=== PATIENT | male | born 1960 | race Caucasian/White ===

== ENCOUNTER 2019-12-04 10:07 | Outpatient (CLI) | payer OTHER, SELFPAY ==
--- NOTE | 2019-12-04 10:13 | ECG_ITS ---
Measurements Intervals [place] Rate: 64 P: -24 ME: 140 QRS: -37 QRSD: 137 T: -87 QT: 442 QTc: 457 Interpretive Statements SINUS RHYTHM LEFT AXIS DEVIATION INTRAVENTRICULAR CONDUCTION DELAY LEFT VENTRICULAR HYPERTROPHY AND ST-T CHANGE ANTEROSEPTAL INFARCT- AGE INDETERMINATE ST-T WAVE ABNORMALITY IN INFERIOR LEADS- CONSIDER ISCHEMIA ABNORMAL ECG Electronically Signed On 12-04-2019 10:55:59 CDT by Jan Newberry D.O.
[2019-12-04 10:23] LABS: Hematocrit 44.4 % (40.0-54.0); Hemoglobin 15.2 g/dL (14.0-18.0); Mean Corpuscular HGB Conc 34.2 g/dL (32.0-36.0); Mean Corpuscular Volume 90.6 fL (78.0-102.0); Mean Platelet Volume 8.2 fl (8.7-11.0); Platelet Count Result 270 K/mm3 (150-420); Red Cell Distribution Width 13.4 % (11.6-14.4); White Blood Count 6.3 K/mm3 (4.8-10.8)
[2019-12-04 10:46] LABS: BNP 226 pg/mL (0-100)
[2019-12-04 11:14] LABS: Alanine Aminotransferase 22 U/L (16-63); Albumin Level 3.7 g/dL (3.4-5.0); Alkaline Phosphatase 74 U/L (46-116); Anion Gap 12.4 mmol/L (7-16); Aspartate Amino Transferase 22 U/L (15-37); Bilirubin,Total 0.2 mg/dL (0.00-1.00); Blood Urea Nitrogen 13 mg/dL (7-18); Calcium 8.7 mg/dL (8.5-10.1); Carbon Dioxide 30 mmol/L (21-32); Chloride 102 mmol/L (98-108); Cholesterol 220 mg/dL (0-200); Estimated Glomerular Filt Rate 23; Glucose 86 mg/dL (70-99); HDL Direct 54 mg/dL (40-60); LDL Cholesterol Calculated 126 mg/dL (<130); Osmolality Calculated 289 mOsm/kg (285-295); Potassium 4.4 mmol/L (3.5-5.1); Sodium 140 mmol/L (136-145); Total Protein 7.1 g/dL (6.4-8.2); Triglycerides 201 mg/dL (0-150)
[2019-12-04 11:18] LABS: Troponin I 0.02 ng/mL (0.00-0.056)
== END 2019-12-04 10:08 | disposition home or self-care (01) ==
PROVIDERS: PCP Family Medicine; Visit Provider Family Medicine
DX: R07.9 Chest pain, unspecified (principal); I10 Essential (primary) hypertension
CPT/HCPCS: 36415; 80053; 80061; 83880; 84484; 85027; 93005

== ENCOUNTER 2019-12-04 18:09 | Inpatient (IN) | payer OTHER, SELFPAY ==
[2019-12-04] VITALS (11 sets, daily range): BP systolic 60–161; BP diastolic 40–79; PULSE 53–87; RESP 12–20; TEMP 36.2–36.3; O2SAT 96–100; BMI 21.5
--- NOTE | 2019-12-04 | ECHO_ITS ---
Patient Info Name: Dawson Rowland Age: 59 years : 1960 Gender: Male Ht: 67 in Wt: 162 lbs BSA: 1.87 m2 HR: 75 bpm Heart Rhythm: Sinus Rhythm Technical Quality: Good Exam Date: 12/04/2019 4:34 PM Exam Location: [facility] Patient Status: Inpatient Admit Date: 12/04/2019 Staff Ordering Physician: Edison Godoy MD Label Rewinder: Silvino Chester RDCS Attending Provider: Edison Godoy MD Referring Physician: Jayne ROSE; Exam Type: CA echo doppler color flow Study Info Indications R07.9 - Chest pain, unspecified R94.31 - Abnormal electrocardiogram ECG EKG Complete two-dimensional, color flow and Doppler transthoracic echocardiogram is performed. Strain analysis performed. History/Risk Factors Chest pain; HTN, SOB, abnormal EKG. Summary 1. Left ventricular chamber dimension is mildly enlarged. 2. Left ventricular systolic function is severely reduced, estimated at 20-25%. 3. The apex is dyskinetic. The anterior wall, apical lateral, mid anterolateral vargas are akinetic. 4. The left ventricular diastolic function is grade II diastolic dysfunction. 5. There is mild aortic valve stenosis with a peak velocity of 207 cm/s, mean gradient of 8 mmHg, and aortic valve area of 1.7 cm2. 6. There is mild to moderate mitral valve regurgitation. 7. Mild pulmonary hypertension, estimated pulmonary arterial systolic pressure is 44 mmHg. 8. There is mild tricuspid valve regurgitation. Left Ventricle Left ventricular chamber dimension is mildly enlarged. Left ventricular systolic function is severely reduced, estimated at 20-25%. There is mildly increased left ventricular wall thickness. The left ventricular diastolic function is grade II diastolic dysfunction. Global longitudinal strain is severely elevated at -7 %. The apex is dyskinetic. The anterior wall, apical lateral, mid anterolateral vargas are akinetic. Right Ventricle Right ventricular chamber dimension is normal. Right ventricular systolic function is normal. Left Atria Left atrial chamber dimension is mildly enlarged. Right Atria Right atrial chamber dimension is normal. Aortic Valve The aortic valve is not well visualized. There is mild aortic valve stenosis with a peak velocity of 207 cm/s, mean gradient of 8 mmHg, and aortic valve area of 1.7 cm2. There is trace aortic valve regurgitation. There is mild aortic valve calcification. Pulmonic Valve The pulmonic valve is not well visualized. There is trace pulmonic regurgitation. Mitral Valve The mitral valve has thickened leaflets. There is mild to moderate mitral valve regurgitation. The mitral valve annulus is mildly calcified. Tricuspid Valve The tricuspid valve leaflets are normal. There is mild tricuspid valve regurgitation. Mild pulmonary hypertension, estimated pulmonary arterial systolic pressure is 44 mmHg. Pericardium/Pleural The pericardium appears normal. There is no pericardial effusion. Inferior Vena Cava Normal inferior vena cava with <50% collapse upon inspiration consistent with elevated right atrial pressure, 10 mmHg. Aorta The aortic root size at the sinus of Valsalva is normal. Left Ventricular Outflow Tract Name Value Normal LVOT 2D
--- NOTE | ~2019-12-04 | CT_ITS ---
EXAMINATION: CT abdomen pelvis wo con DATE: 12/05/2019 10:37 INDICATION: Post procedural back pain following cardiac catheterization. TECHNIQUE: Computed tomography (CT) of the abdomen and pelvis was performed without intravenous contr ast. Automated exposure control and iterative reconstruction technique were employed. The dose-length product was 487.68 mGy-cm. COMPARISON: None FINDINGS: Mild dependent atelectasis in the bilateral lower lobes. Partially visualized intrafissural lymph nod e along the right minor fissure. No pneumonia, pulmonary edema or pleural effusion. Heart size is nor mal. Atherosclerotic coronary artery calcification. There is a left ventricular assist device which a ppears to access the arteries at the level of the right common femoral artery which extends cephalad throughout the aorta with distal tip positioned within the left ventricle. The portion of the device extending through the aortic arch is excluded from the [id number]. There is calcified atherosclero sis of the aorta and many of the other arteries. No aortic aneurysm, retroperitoneal hematoma or susp icious stranding surrounding the aorta to suggest aortic injury. Nasogastric tube tip at the fundus o f the stomach. Vicariously excreted contrast likely from cardiac catheterization is seen layering in the dependent a spect of the normal-appearing gallbladder. Liver, pancreas and bilateral adrenal glands are normal. S plenic calcific a consistent consistent with old granulomatous disease. Excreted contrast likely from prior cardiac catheterization is seen within the bilateral renal collecting systems, ureters and in the bladder with no hydronephrosis. Kidneys are otherwise unremarkable. Pineda catheter within the rk dder which demonstrates a mildly trabeculated mucosal surface. No abnormal bowel wall thickening or o bstruction. The appendix is not visualized. No pericecal inflammatory change to suggest acute appendi citis. No free intraperitoneal gas or fluid. No pathologically enlarged abdominal or pelvic lymphaden opathy. [place] mild thoracolumbar spondylosis. Ankylosis across the anterior cephalad margins of the bi lateral sacral iliac joints. IMPRESSION: 1. Left ventricular assist device in expected position with no evident aneurysm, periaortic stranding or retroperitoneal hematoma to suggest iatrogenic injury. 2. No acute intra-abdominal/pelvic process. Reviewed, dictated and finalized at location A. IMPRESSION: 1. Left ventricular assist device in expected position with no evident aneurysm , periaortic stranding or retroperitoneal hematoma to suggest iatrogenic injury . 2. No acute intra-abdominal/pelvic process.
--- NOTE | ~2019-12-04 | XR_ITS ---
XR chest ET placement 12/05/2019 09:55 Indication: Respiratory distress. Procedure: AP portable chest Comparison: 12/04/2019 Findings: Heart size normal. Endotracheal tube tip 6 cm above the bhumi. NG tube in the stomach. The re is a catheter overlying the heart, possibly in the left ventricle. No focal air space disease, pul monary edema, pleural effusion or suspected pneumothorax. Impression: 1: No acute cardiopulmonary disease. Reviewed, dictated and finalized at location A. Impression: 1: No acute cardiopulmonary disease.
--- NOTE | ~2019-12-04 | XR_ITS ---
EXAMINATION: XR abdomen NG/feed tube insert DATE: 12/05/2019 09:55 INDICATION: Orogastric tube insertion TECHNIQUE: A supine view of the abdomen and lower chest was obtained for evaluation of feeding tube placement. COMPARISON: None. FINDINGS: Orogastric tube tip in proximal side port in the body of the stomach. Gas and stool scattered through out the colon. No dilated gas-filled small bowel to suggest obstruction. Lung bases are clear. Heart size is normal. Left ventricular assist device extending from the right iliac arteries through the ao rta with distal tip in the left ventricle. IMPRESSION: 1. Gastric tube in the stomach. Reviewed, dictated and finalized at location A.
--- NOTE | ~2019-12-04 | XR_ITS ---
EXAMINATION: XR chest 2V EXAM DATE: 12/04/2019 18:04 INDICATION: Mid chest pain. Recent STEMI. TECHNIQUE: Frontal and lateral projections of the chest obtained and reviewed. Comparison is made to prior examination from 12/01/2015. FINDINGS: There is no focal air space disease. There are no pleural effusions. The cardiothymic jodi houette is normal. There is no pneumothorax. There are no osseous or soft tissue abnormalities in t his skeletally immature patient. Lungs have normal volume. Mild thoracic spondylosis. IMPRESSION: No acute cardiopulmonary findings. Reviewed, dictated and finalized at location A.
--- NOTE | 2019-12-04 15:59 | PM.IMHP ---
H&P: HPI History of Present Illness Chief complaint: PROGRESSIVE ANGINA Narrative: Dawson Rowland is a 59 year old male admitted due to chest pain. He was in his usual state of health until about 6 months ago. At that time he began to experience intermittent substernal chest pressure. Initially was with hard work only a such as splitting wood. However then it progressed to the point very walking 600 ft on flat ground with precipitated. Currently he is able to walk up only about 5-6 stairs prior to had stopping because of chest pain. Chest pain is moderately severe and radiates to the neck and both shoulders and biceps. It is associated with shortness of breath and palpitations. He has to rest 5-10 minutes for the pain to go away. However he feels tired for a few hours after each episode. Over the last 3 months or so he has noted difficulty breathing while lying flat. He sleeps on his side. Sometimes he wakes up in the middle of his night with chest pressure and shortness of breath and has to sit up to make it go away. He denied edema. He denied syncope or presyncope. No recent change in appetite or weight. No recent GI or habit change. No abnormal bleeding. He did have a stroke with right-sided weakness in 2015. However he regained almost all of his strength and had no physical limitations until the onset of chest pain 6 months ago. Risk factors for coronary artery disease include cigarette smoking, hypertension, hyperlipidemia, and cerebrovascular disease. Review of Systems Review of Systems: All systems reviewed & are unremarkable except as noted in HPI and below PMFSH Past Medical History Medical History (Updated 12/04/19 @ 17:41 by Edison Godoy MD) Bilateral carotid bruits Cerebrovascular disease Chest pain Chronic systolic (congestive) heart failure Cigarette nicotine dependence History of stroke Hyperlipidemia Hypertension Mitral insufficiency Surgical History Surgical History (Updated 12/04/19 @ 17:35 by Edison Godoy MD) History of carpal tunnel repair Right Side, with subsequent reconstruction Family History Family History Mother Heart disease Alzheimers disease Father Leukemia Social History Social History (Updated 12/04/19 @ 17:37 by Edison Godoy MD) Social History: . Resides with his . Works construction intermittently. Smoked 1.5 packs per day from age 24 until age 54. Then cut down to about 3-5 cigarettes per day. Drinks a beer about 3 times per week. Never used recreational drugs. Does construction work intermittently. Smoking packs per day: 0.25 Smoking cigarettes per day: 5.0 Years smoked: 35 Smoking pack-years: 8.75 Smoking status: Current every day smoker Tobacco type: cigarettes Second hand tobacco smoke exposure: No Alcohol intake: current Drinks per week: 3 Substance use: never Living arrangements: with family Additional living arrangements comments: . Occupation/Education: occupation 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 Gender identity (if verbalized by the patient): Male Spiritual care concerns: Yes Agree to blood products: Yes Meds Home Medications and Allergies Home Medications Medication Instructions Recorded Confirmed Type No Home Medications 12/04/19 12/04/19 History Allergies Allergy/AdvReac Type Severity Reaction Status Date / Time No Known Allergies Allergy Verified 12/04/19 09:43 Exam Narrative: Exam Narrative: HEENT: EOMI, PERRL, sclerae nonicteric, pharyngeal mucosa pink and intact NECK: No JVD, adenopathy, or thyromegaly. Bilateral systolic carotid bruits, left greater than right. CHEST: Clear to auscultation. Normal effort. HEART: NL S1/S2, regular, 3/6 apical systolic murmur radiating to axilla. PMI displaced laterally. ABDOMEN: BS+, so
--- NOTE | 2019-12-04 16:54 | ADMGEN ---
This patient, Dawson Rowland, was admitted to IMU Room 201-01 at 1530 on 12/04/2019. Patient/family oriented to hospital policies and general routines including ID bracelet, bed and alarms, visiting hours, pain management, procedures, bathroom and other care routines, personal items, smoking policy, room service/diet, and visiting hours. Valuables list has been completed. Information on how to activate the Rapid Response Team has been discussed. Patient/Family are encouraged to report perceived risks to care and to ask questions if they do not understand what they are told or what they should do.
[2019-12-04 17:51] LABS: Cholesterol 221 mg/dL (0-200); HDL Direct 62 mg/dL; Triglycerides 59 mg/dL (<150)
[2019-12-04 17:52] LABS: Magnesium 2.3 mg/dL (1.6-2.3)
[2019-12-04 17:59] LABS: CRP < 0.5 mg/dL (<1.0)
[2019-12-04 18:02] LABS: LDL Cholesterol Direct 150 mg/dL
[2019-12-04 18:03] LABS: Complement C3 105 mg/dL (88-165)
[2019-12-04 18:03] LABS: Troponin I 0.026 ng/mL (0.000-0.034)
[2019-12-04] MEDS: ASPIRIN 81 MG CHEWABLE TABLET 324 MG PO (18:16)
[2019-12-04] MEDS: NICOTINE (*PBKC) 7 MG PATCH 1 PATCH TRANSDERM (18:19)
[2019-12-04 18:59] LABS: Hepatitis B Surface Antigen Negative (Negative)
[2019-12-04 19:17] LABS: Hepatitis C Virus Antibody Negative (Negative)
[2019-12-04] MEDS: SODIUM CHLORIDE 0.9% IV 250 ML 999 ML IV CONT (19:30)
--- NOTE | 2019-12-04 20:45 | ECG_ITS ---
Measurements Intervals [place] Rate: 66 P: -60 CT: 132 QRS: -48 QRSD: 126 T: 269 QT: 418 QTc: 440 Interpretive Statements ECTOPIC ATRIAL RHYTHM LEFT AXIS DEVIATION INTRAVENTRICULAR CONDUCTION DELAY LEFT VENTRICULAR HYPERTROPHY AND ST-T CHANGE CANNOT RULE OUT SEPTAL INFARCT, AGE INDETERMINATE ST ELEVATION IN ANTEROSEPTAL LEADS- PROBABLY DUE TO LEFT VENTRICULAR HYPERTROPHY AND CONSIDER ACUTE INJURY ST-T WAVE ABNORMALITY IN INF/LAT LEADS- CONSIDER ISCHEMIA ABNORMAL ECG Electronically Signed On 12-05-2019 7:12:14 CDT by Jan Newberry D.O.
[2019-12-04] MEDS: NITROGLYCERIN SL 0.4 MG TABLET SUBLINGUAL ×2 (20:57→21:02)
[2019-12-04 21:18] LABS: Basophils Absolute Auto 0.1 K/mm3 (0.0-0.1); Basophils Percent Auto 0.9 % (0.2-1.2); Eosinophils Absolute Auto 0.1 K/mm3 (0-0.3); Hemoglobin 15.7 g/dL (14.0-18.0); Immature Granulocyte Absolute 0.01 K/mm3 (0.00-0.031); Immature Granulocyte Percent A 0.1 % (0-0.5); Lymphocytes Absolute Auto 1.91 K/mm3 (0.9-3.2); Lymphocytes Percent Auto 27.8 % (18.3-44.2); Mean Corpuscular HGB Conc 34.9 g/dl (32-36); Mean Corpuscular Hemoglobin 30.7 pg (26-34); Mean Corpuscular Volume 88.1 fl (80-100); Mean Platelet Volume 8.5 fl (7.4-10.4); Monocytes Absolute Auto 0.7 K/mm3 (0.1-0.6); Monocytes Percent Auto 9.5 % (2.6-8.5); Neutrophils Absolute Auto 4.1 K/mm3 (1.3-6.7); Neutrophils Percent Auto 59.7 % (45.5-73.1); Platelet Count Result 302 k/mm3 (150-375); Red Blood Count 5.11 M/mm3 (4.6-6.20); Red Cell Distribution Width 13.2 % (11.5-14.5); White Blood Count 6.9 K/mm3 (4.5-10.0)
[2019-12-04 21:25] LABS: INR 0.9; Prothrombin Time 11.8 Seconds (11.1-14.7)
[2019-12-04 21:26] LABS: Partial Thromboplastin Time 28.6 SECONDS (22.3-36.8)
[2019-12-04] MEDS: HEPARIN SODIUM 5,000 UNITS/ML VIAL 3500 UNITS IV PUSH (21:36)
[2019-12-04] MEDS: HEPARIN SOD/D5W 100 UNITS/ML 25,000 UNITS/250 ML BAG 7 UNITS IV CONT (21:36)
[2019-12-04 21:39] LABS: Troponin I 0.029 ng/mL (0.000-0.034)
--- NOTE | 2019-12-04 21:43 | PC.NURSE ---
This patient, Dawson Rowland, was transferred to ICU-10 on 12/04/19 at 2130 R/O NC. Personal belongings sent with patient. Belongings list checked and signed with receiving [ ]. Report given to GERBER BLACKWELL [ ]. Appropriate documentation sent with patient.
--- NOTE | 2019-12-04 21:53 | PM.CCN ---
Critical Care Event Note Summary Code activated: No Narrative: Date and time: 12/04/2019 around 21:05 Nursing staff called hospitalist office and reported left shoulder pain and was requesting pain medications. The patient had been directly admitted from outpatient clinic in [place] due to anginal symptoms and CHF symptoms. The patient's initial troponin from the outside clinic was 0.02 around 10:00 a.m. he had a 2nd troponin at 5:30 p.m. have his 0.026. A stat troponin was ordered when the nurse had reported the patient having left shoulder pain and came back at 0.029. The patient had an EKG done at the outpatient office a stat EKG was obtained which demonstrated: Left axis deviation, interventricular conduction delay, left ventricular hypertrophy and ST and T-wave changes, anterior septal infarct age indeterminate, ST and T-wave abnormalities inferior leads consider ischemia per per official read. At the time of my review I was concerned that some of the changes consistent with ST elevation. A stat repeat EKG was obtained which demonstrated stable prior changes but also demonstrated at T-wave inversions in V5 and V6. The patient received stat nitro sublingual at 8:55 p.m. and at 9:02 p.m. because he was reporting not only left shoulder pain but squeezing pain in his neck radiating up to his bilateral jaws in across his shoulders bilaterally. He had also reported pain in the posterior left shoulder. His pain decreased from a 10 down to a 4/10 in intensity after the 2nd nitro. Heparin bolus and drip was ordered per protocol. His blood pressure was elevated to 161/76 at 7:36 p.m. his blood pressure prior to 1st nitro administration was 125/76. His systolic blood pressure was still in the 120s systolic prior to the 2nd nitro administration. I was at the patient's bedside to evaluate the patient at 9:10 p.m.. Nursing staff had contacted the human geography faculty member and I when out of the room to discuss the patient's case with Dr. Soria. I had forwarded the EKGs to the human geography faculty member and she was reviewing the EKGs. She recommended the patient be transferred to the ICU for low-dose nitroglycerin drip. While I was out of the room the patient became acutely diaphoretic with increased shortness of breath. This occurred approximately 35 minutes after the 2nd nitro administration. His blood pressures were 60/40. I gave the patient 250 mL bolus of isotonic fluids. I updated the human geography faculty member and she since the patient's EKGs to the interventionalist on-call. Dr. Chow called me at 9:37 p.m. and after discussion of the patient's case and condition the asked for the brush clearing laborer to be activated. The patient was only mcfp through his fluid bolus at that time his blood pressure had improved to 110s/ 60. Criminal Intelligence Analyst requested that he the dopamine or Levophed and made available for any further hypotension. S patient did not have a central line dopamine was ordered. However the patient never required dopamine administration as his blood pressures were 120/76 when he was taken out to the brush clearing laborer at 10:39 p.m.. When the patient was transferred to the ICU, I called and discussed the patient's case with the oracle database consultant. He agreed with current treatment plan. 85 minutes spent in critical care activities. This case had a high probability of a clinically significant, sudden, or life threatening deterioration of this patient's condition which required my full and direct attention, intervention and personal management. Critical care time: 75 - 104 mins
--- NOTE | 2019-12-04 22:30 | PM.CNCAR ---
Assessment and Plan Assessment and plan (1) Unstable angina: Code(s): I20.0 - Unstable angina Status: Acute Assessment and Plan: status post cardiac catheterization that shows totally occluded left main coronary artery and ostium. patient has very large and dominant right coronary artery with extensive [id number] collaterals. Impella was inserted for hemodynamics support and for relief of angina symptoms. will need to refer this patient to [facility] for evaluation for either CABG or high-risk intervention. (2) Chronic systolic (congestive) heart failure: Code(s): I50.22 - Chronic systolic (congestive) heart failure Status: Acute Assessment and Plan: ejection fraction 25%. Again this is a new diagnosis for the patient. ischemic cardiomyopathy. currently with Impella (3) History of stroke: Code(s): Z86.73 - Personal history of transient ischemic attack (TIA), and cerebral infarction without residual deficits Status: Acute Assessment and Plan: patient does have bilateral carotid bruits. we need to clarify the history of the stroke (4) Cigarette nicotine dependence: Qualifiers: Substance use status: uncomplicated Qualified Code(s): F17.210 - Nicotine dependence, cigarettes, uncomplicated Code(s): F17.210 - Nicotine dependence, cigarettes, uncomplicated Status: Chronic Assessment and Plan: chronic nicotine dependence History of Present Illness History of Present Illness Consult date/time: 12/04/19 22:30 reason for consult:. consult for chest pain, shortness of breath low blood pressure EKG changes Physician asking for consultation: this is 59-year-old patient with past medical history of chronic tobacco use, alcohol drinking, CVA with right-sided weakness, hypertension who apparently was evaluated are [facility] this morning for chest pain. Apparently central chest pain, on exertion for the last 6 months associated shortness of breath. chest pain radiating to both arms and neck and has been progressive over the last 6 months and now he gets chest pain on minimal exertion. However apparently this evening he was not having chest pain at rest that his blood pressure dropped to the 60 systolic and patient had to be transferred to the ICU. EKG reviewed myself shows ST elevations V1 to V3, aVL, LVH, ST depression inferior leads in lead V6. echocardiogram done today shows ejection fraction 25% wall motion anterior, anterolateral mild aortic stenosis [id number] mitral regurgitation, RVSP 44. chest x-ray reviewed myself looks unremarkable serum creatinine 2.8, BNP 240 Reason For Visit: ANGINA Review of Systems Constitutional: Constitutional: Denies chills, Denies fever(s) and Denies poor appetite Eyes: Eyes: Denies eye discharge, Denies loss of vision, Denies eye pain and Denies photophobia ENT: Denies dizziness, Denies epistaxis, Denies nasal congestion and Denies sore throat Cardiovascular: Cardiovascular: Reports chest pain, Denies syncope, Denies pedal edema, Denies leg edema, Reports lightheadedness, Denies palpitations, Reports dyspnea, Reports dyspnea on exertion and Reports orthopnea Respiratory: Respiratory: Reports cough, Reports dyspnea, Reports dyspnea on exertion and Denies wheezing Gastrointestinal: Gastrointestinal: Denies abdominal pain, Denies diarrhea, Denies nausea and Denies vomiting Genitourinary: Genitourinary: Denies hematuria, Denies genital lesions and Denies dysuria Musculoskeletal: Musculoskeletal: Denies arthralgias, Denies joint swelling and Denies numbness Integumentary/Breasts: Skin/Breast: Denies pruritus and Denies rash Neurologic: Denies dizziness, Denies syncope, Denies loss of vision and Denies numbness Psychiatric: Psychiatric: Denies anxiety and Denies depression Endocrine: Endocrine: Denies cold intolerance, Denies heat intolerance and Denies palpitations Jovany
[2019-12-05] VITALS (18 sets, daily range): BP systolic 86–148; BP diastolic 66–109; PULSE 50–106; RESP 12–18; TEMP 36.1–36.9; O2SAT 95–100
--- NOTE | 2019-12-05 00:09 | WPDMODSED ---
Moderate Sedation Note-Pt Data Patient Data Allergies Allergy/AdvReac Type Severity Reaction Status Date / Time No Known Allergies Allergy Verified 12/04/19 09:43 Home Medications Medication Instructions Recorded Confirmed Type No Home Medications 12/04/19 12/04/19 History Current Medications: Active Medications Aspirin (Aspirin Ec) 81 mg PO QAM [facility] Atorvastatin Calcium (Lipitor) 40 mg PO DAILY [facility] Carvedilol (Coreg) 1.56 mg PO Q12HR [facility] Last Admin: 12/04/19 22:07 Dose: Not Given Documented by: Heparin Sodium (Porcine) (Heparin Sodium) 4,000 units IV PUSH PRN PRN PRN Reason: aPTT less than 55 seconds Heparin Sodium (Porcine) (Heparin Sodium) 2,500 units IV PUSH PRN PRN PRN Reason: aPTT 55 - 70 seconds Heparin Sodium/Dextrose (Heparin Sodium/D5w 100 Units/Ml) 25,000 units in 250 mls @ 7 mls/hr IV CONT .Q24H [facility]; Protocol Last Admin: 12/04/19 21:36 Dose: 700 units/hr, 7 mls/hr Documented by: Dopamine HCl/Dextrose (Dopamine 400 Mg/D5w 250 Ml) 400 mg in 250 mls @ 4.68 mls/hr IV CONT .Q24H [facility]; Protocol Nicotine (Nicoderm Cq 7 Mg) 1 patch [facility] [place] Last Admin: 12/04/19 18:19 Dose: 1 patch Documented by: Nitroglycerin (Nitrostat Subl 0.4 Mg (1/150)) 0.4 mg SUBLINGUAL Q5MIN PRN PRN Reason: Chest Pain Last Admin: 12/04/19 21:02 Dose: 0.4 mg Documented by: Sedation/Anesthesia: No previous sedation/anesthesia problems (including family history). [facility] Past Medical History Medical History Bilateral carotid bruits Cerebrovascular disease Chest pain Chronic systolic (congestive) heart failure Cigarette nicotine dependence History of stroke Hyperlipidemia Hypertension Mitral insufficiency Surgical History Surgical History History of carpal tunnel repair Right Side, with subsequent reconstruction Family History Family History Mother Heart disease Alzheimers disease Father Leukemia Social History Social History Social History: . Resides with his . Works construction intermittently. Smoked 1.5 packs per day from age 24 until age 54. Then cut down to about 3-5 cigarettes per day. Drinks a beer about 3 times per week. Never used recreational drugs. Does construction work intermittently. Smoking packs per day: 0.25 Smoking cigarettes per day: 5.0 Years smoked: 35 Smoking pack-years: 8.75 Smoking status: Current every day smoker Tobacco type: cigarettes Second hand tobacco smoke exposure: No Alcohol intake: current Drinks per week: 3 Substance use: never Living arrangements: with family Additional living arrangements comments: . Occupation/Education: occupation 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 Gender identity (if verbalized by the patient): Male Spiritual care concerns: Yes Agree to blood products: Yes Mod Sed Physical Exam Physical Exam Pre Procedural Exam: Normal: Appearance, Eyes, Ears, Nose, Neck, Throat, Airway, Lungs, Heart Size, Heart Rate, Heart Rhythm, Neuro Exam, Abdomen, Liver, Kidneys, Spleen, Breasts, Genitalia, Extremities and Skin Hours since solid foods: 8 Hours since liquid intake: 8 Internal Medicine - PN: Obj Da Vital Signs Vital Signs: Vital Signs - 24 hr 12/04/19 15:30 12/04/19 16:00 12/04/19 16:15 Temperature 36.3 C L 36.3 C L Pulse Rate 66 80 64 Respiratory Rate 16 20 Blood Pressure 126/79 122/60 Pulse Oximetry 100 98 12/04/19 18:00 12/04/19 19:36 12/04/19 20:00 Temperature 36.2 C L Pulse Rate 64 61 87 Respiratory Rate 18 Blood Pressure 161/76 H Pulse Oximetry 96 12/04/19 20:50 12/04/19 21:15 12/04/19 21:25 Temperature Pulse Rate 66 63 Respiratory Rate 18 Blo
--- NOTE | 2019-12-05 00:10 | P.PCNCC_ITS ---
Cardiac Cath Procedure Note Date of procedure:: 12/05/19 Performing physician:: Anabelle Bray MD Indication:: unstable angina date of service: 12/04/2019 Brief clinical history:: 59-year-old patient with history of stroke, hypertension, chronic tobacco use comes to the hospital with progressive chest pain for the last 6 months worse for the last couple days with angina at rest. EKG shows ST elevation in leads V1 to V3, LVH, ST depression inferior leads. Was brought into the veterinary laboratory technician because of ongoing chest pain Procedure Procedure performed:: 1-Moderate sedation that started at 10:56 p.m. and ended at 12:00 a.m.using 1 mg of Versed and 50mg fentanyl. The registered nurse Kim Frausto. 2-Selective left and right coronary angiogram. 3-Left heart catheterization with measurement of LVEDP and measurement of gradient across aortic valve. 4- peripheral arterial angiogram of bilateral iliacs, bilateral common femoral arteries. 5- Insertion of left ventricular assist device, percutaneous including radiological supervision and interpretation, arterial access only CPT code 83841. 6- CPT code 22544- critical care, evaluation and management of a critically injured patient, 1st 30-74 minutes. Sedation/Medication given:: Moderate sedation. Access site:: Right common femoral artery. Estimated blood loss:: 10cc Procedure note:: After informed consent patient was brought in to veterinary laboratory technician with the was draped and prepped in usual manner. Moderate sedation was given and the right groin was infiltrated using 1% lidocaine. Five Scottish sheath was obtained using micropuncture needle and the modified Seldinger technique. Selective left coronary angiogram was done using JL4 catheter with the tip of the catheter placed in the left main coronary artery. Selective right coronary angiogram was done using JR4 catheter with the tip of the catheter placed to the right coronary artery. After that 5 Scottish pigtail catheter was advanced across the aortic valve into the left ventricle with measurement of LVEDP and measurement of gradient across aortic valve. after that we used the pigtail catheter for peripheral arterial angiogram. subsequently the right femoral artery sheath was changed and the Impella sheath was inserted after serial dilatation. Impella catheter was advanced to the left ventricle over a wire. the Impella was set at P8, with 3 liters/minute. Findings:: 1- left coronary artery is totally occluded at the ostium with Heavy calcification. 2- left anterior descending artery seems to be filling with collaterals from the right coronary artery. 3- leftcircumflex artery is filling with collaterals from the right coronary artery. 4- right coronary artery is very large artery and dominant. has proximal to mid 60-70%. distal RCA focal stenosis about 70%. 5- LVEDP was 10 mm Hg and no gradient across aortic valve. 6- opening arterial pressure was 105/60and closing pressure was 117/80 7- peripheral arterial angiogram shows patent common iliacs, external iliacs and bilateral femoral arteries. the right common femoral artery below the entrance site of the catheter as mild disease. the left common femoral artery bifurcation is very high. Conclusion:: 1- totally occluded left main coronary artery at ostium. 2- extensive [id number] collaterals. 3- high-grade stenosis proximal RCA, distal RCA. Assessment and Plan Additional Plan at this time we will refer this patient to [facility] for evaluation for bypass surgery or intervention coronary artery. - patient does have at least moderate mitral regurgitation as well.
[2019-12-05 01:57] LABS: Add Urine Microscopic? YES; Appearance Urine Clear (Clear); Bilirubin Urine Negative (Negative); Blood Urine 1+ (Negative); Color Urine Straw (Yellow); Glucose Urine UA Negative (Negative); Ketones Urine Negative (Negative); Leukocyte Esterase Ur Negative LEU/UL (Negative); Nitrate Urine Negative (Negative); Protein Urine Negative (Negative); RBC Urine 0-2 /hpf (0-2); Specific Grav Ur 1.018 (1.001-1.035); Urobilinogen Urine Negative mg/dL (<2.0); WBC Urine 0-3 /hpf
[2019-12-05] MEDS: SODIUM CHLORIDE 0.9% IV 500 ML IV CONT (02:08)
[2019-12-05 03:35] LABS: Basophils Percent Auto 0.6 % (0.2-1.2); Eosinophils Absolute Auto 0.1 K/mm3 (0-0.3); Eosinophils Percent Auto 1.9 % (0-4.4); Hematocrit 44.2 % (42.0-52.0); Hemoglobin 15.1 g/dL (14.0-18.0); Immature Granulocyte Absolute 0.02 K/mm3 (0.00-0.031); Immature Granulocyte Percent A 0.3 % (0-0.5); Lymphocytes Absolute Auto 1.34 K/mm3 (0.9-3.2); Lymphocytes Percent Auto 21.5 % (18.3-44.2); Mean Corpuscular HGB Conc 34.2 g/dl (32-36); Mean Corpuscular Hemoglobin 30.6 pg (26-34); Mean Corpuscular Volume 89.5 fl (80-100); Mean Platelet Volume 8.7 fl (7.4-10.4); Monocytes Absolute Auto 0.5 K/mm3 (0.1-0.6); Monocytes Percent Auto 8.7 % (2.6-8.5); Neutrophils Absolute Auto 4.2 K/mm3 (1.3-6.7); Platelet Count Result 282 k/mm3 (150-375); Red Blood Count 4.94 M/mm3 (4.6-6.20); Red Cell Distribution Width 13.6 % (11.5-14.5); White Blood Count 6.2 K/mm3 (4.5-10.0)
[2019-12-05 04:21] LABS: Partial Thromboplastin Time 79.5 SECONDS (22.3-36.8)
[2019-12-05] MEDS: SODIUM CHLORIDE 0.9% IV 500 ML 999 ML IV CONT (04:23)
--- NOTE | 2019-12-05 04:23 | PM.CCN ---
Critical Care Event Note Summary Code activated: No Narrative: Nursing staff called me at 3:49 a.m. The patient had suddenly developed severe tearing low back pain. He screamed out and had marked pallor. He was diaphoretic. His heart rate had dropped a 30 and his blood pressure had dropped reportedly a 30 as well. The patient became less responsive. Nursing staff had called Cardiology and received or for 500 mL bolus. The patient remained hypotensive with systolic blood pressures a 76. He remained bradycardic with heart rate between 40 and 50. Patient reported that the pain had improved but he still have marked pallor. GENERAL: The thin body habitus, acutely ill-appearing HEENT: Mucous membranes are tacky, head is normocephalic atraumatic, pupils are equal and react CARDIOVASCULAR: Bradycardic, normal S1-S2 RESPIRATORY: No increased work of breathing, equal chest expansion ABDOMEN: Nondistended, no pain INTEGUMENT: Generalized pallor, diaphoretic NEUROLOGIC: Alert, barely audible speech, needing frequent reminders of events of tonight, moves extremities equally PSYCHIATRIC: Appropriate mood affect EXTREMITIES: No clubbing, cyanosis or edema : Pineda catheter in place with good urine output Assessment: 1. 2 vessel coronary artery disease-Impella in place. Management per cardiology. Anticipate the patient will be transferred to tertiary care in a.m.. Repeat EKG has been ordered. 2. Bradycardia and hypotension-possible vagal event related to the patient's pain verses due to cardiac ischemia. Patient received 500 mL bolus normal saline with improvement in his blood pressure the mid 70s systolic. An additional 250 mL bolus is being administered at this time. This case had a high probability of a clinically significant, sudden, or life threatening deterioration of this patient's condition which required my full and direct attention, intervention and personal management. Critical care time: less than 30 mins
[2019-12-05 04:24] LABS: Blood Urea Nitrogen 15 mg/dL (9-20); Calcium 8.7 mg/dL (8.4-10.2); Carbon Dioxide 24 mmol/L (22-30); Chloride 106 mmol/L (98-107); Estimated CRCL calculation 57 ml/min; Estimated Glomerular Filt Rate > 60; Glucose 115 mg/dL (75-110); Potassium 4.7 mmol/L (3.4-5.0); Sodium 135 mmol/L (137-145)
[2019-12-05] MEDS: SODIUM CHLORIDE 0.9% IV 250 ML 999 ML IV CONT (04:25)
[2019-12-05 04:43] LABS: Troponin I 0.217 ng/mL (0.000-0.034)
--- NOTE | 2019-12-05 04:56 | ECG_ITS ---
Measurements Intervals [place] Rate: 52 P: 66 MO: 165 QRS: -52 QRSD: 128 T: 259 QT: 507 QTc: 472 Interpretive Statements SINUS BRADYCARDIA LEFT ANTERIOR FASCICULAR BLOCK LEFT VENTRICULAR HYPERTROPHY AND ST-T CHANGE CANNOT RULE OUT SEPTAL INFARCT, AGE INDETERMINATE ST-T WAVE ABNORMALITY IN INFERIOR LEADS- CONSIDER ISCHEMIA ABNORMAL ECG Electronically Signed On 12-05-2019 10:27:38 CDT by Jan Newberry D.O.
[2019-12-05 07:47] LABS: Partial Thromboplastin Time 27.1 SECONDS (22.3-36.8)
[2019-12-05] MEDS: MORPHINE SULFATE 2 MG/ML INJ IV PUSH (08:38)
--- NOTE | 2019-12-05 09:35 | WPDCNINT ---
Assessment and Plan Assessment and plan (1) Unstable angina: Code(s): I20.0 - Unstable angina Status: Acute Assessment and Plan: patient presented with chest pain for 6 months, worsening with exertion, patient was seen at the outside clinic for worsening chest pain with minimal exertion. EKG changes were noted in patient was sent [facility]. - status post cardiac catheterization that shows totally occluded left main coronary artery at the ostium, patient has a very large and dominant right coronary artery with extensive [id number] collaterals. Patient also has high-grade stenosis to the proximal and distal RCA. - Impella device in place, on heparin infusion - on aspirin, carvedilol, atorvastatin (2) Chronic systolic (congestive) heart failure: Code(s): I50.22 - Chronic systolic (congestive) heart failure Status: Acute Assessment and Plan: echocardiogram showed an EF of 20-25%, apex is dyskinetic, the anterior wall the apical lateral and mid anterolateral vargas are akinetic. May 2 diastolic dysfunction, mild aortic valve stenosis, mild to moderate mitral valve regurg, mild pulmonary hypertension with RVSP of 44 mmHg. (3) Renal failure: Qualifiers: Renal failure chronicity: unspecified chronicity Qualified Code(s): N19 - Unspecified kidney failure Code(s): N19 - Unspecified kidney failure Status: Acute Assessment and Plan: Creatinine is back to normal, patient has had adequate urine output. (4) Cigarette nicotine dependence: Qualifiers: Substance use status: uncomplicated Qualified Code(s): F17.210 - Nicotine dependence, cigarettes, uncomplicated Code(s): F17.210 - Nicotine dependence, cigarettes, uncomplicated Status: Chronic Assessment and Plan: Patient has a nicotine patch (5) History of stroke: Code(s): Z86.73 - Personal history of transient ischemic attack (TIA), and cerebral infarction without residual deficits Status: Acute Assessment and Plan: history of stroke in 2015, no residual weakness per patient (6) Hypertension: Qualifiers: Hypertension type: unspecified Qualified Code(s): I10 - Essential (primary) hypertension Code(s): I10 - Essential (primary) hypertension Status: Chronic Assessment and Plan: history of essential hypertension currently on Coreg (7) Acute respiratory failure: Code(s): J96.00 - Acute respiratory failure, unspecified whether with hypoxia or hypercapnia Status: Acute Assessment and Plan: patient was intubated as he was being anxious due to pain, was tachypneic, unable to stay still. I decided to intubate the patient for his safety. - On CMV mode of ventilation, peep of 5 in 60% FiO2 - chest x-ray showed, ETT in appropriate position Additional Plan discussed with cardiology, they have discussed with the family in details as patient is being transferred to [facility] code status: Full code Critical care time spent: 51 minutes Due to a high probability of clinically significant, life threatening deterioration, the patient required my highest level of preparedness to intervene emergently and I personally spent this critical care time directly and personally managing the patient. This critical care time included obtaining a history; examining the patient; pulse oximetry; ordering and review of studies; arranging urgent treatment with development of a management plan; evaluation of patient's response to treatment; frequent reassessment; and discussions with other providers. It was exclusive of separately billable procedures and treating other patients and teaching time. Please see Assessment and Plan section and the rest of the note for further information on patient assessment and treatment [facility] Historian Consult Note Consult date: 12/05/19 Time Seen: 06:58 Reason for consult: chest pa
[2019-12-05 09:57] LABS: Hematocrit 46.2 % (42.0-52.0); Hemoglobin 15.5 g/dL (14.0-18.0); Mean Corpuscular HGB Conc 33.5 g/dl (32-36); Mean Corpuscular Hemoglobin 30.5 pg (26-34); Mean Corpuscular Volume 90.9 fl (80-100); Mean Platelet Volume 8.6 fl (7.4-10.4); Platelet Count Result 267 k/mm3 (150-375); Red Blood Count 5.08 M/mm3 (4.6-6.20); Red Cell Distribution Width 13.5 % (11.5-14.5); White Blood Count 11.3 K/mm3 (4.5-10.0)
[2019-12-05] MEDS: SODIUM CHLORIDE 0.9% IV 500 ML 999 ML (10:00)
[2019-12-05 10:08] LABS: Blood Urea Nitrogen 15 mg/dL (9-20); Calcium 8.6 mg/dL (8.4-10.2); Carbon Dioxide 23 mmol/L (22-30); Chloride 107 mmol/L (98-107); Estimated CRCL calculation 68 ml/min; Estimated Glomerular Filt Rate > 60; Glucose 120 mg/dL (75-110); Potassium 4.2 mmol/L (3.4-5.0); Prothrombin Time 12.5 Seconds (11.1-14.7); Sodium 135 mmol/L (137-145)
[2019-12-05 10:09] LABS: Partial Thromboplastin Time 29.4 SECONDS (22.3-36.8)
[2019-12-05] MEDS: MIDAZOLAM HCL 2 MG/2 ML VIAL (10:30)
--- NOTE | 2019-12-05 11:07 | WPDPROCEDUR ---
Procedures Intubation Intubation Date: 12/05/19 Intubation Time: 09:40 A pre-procedural Time-Out was completed immediately before starting the procedure and confirmed: Patient Identification, Site, Procedure, Patient Position and the Availability of Requisite Equipment: Yes Sedative: etomidate Paralytic: succinylcholine Laryngoscope: fiber optic video scope ET tube size: 8 Tube secured depth (cm): 24 Tube secured location: lips Tube placement confirmation: visualized tube passing through cords, equal breath sounds bilaterally, no breath sounds over epigastrium and confirmation by capnometry Patient tolerated procedure: no complications Intubation complications: none Additional comments: After obtaining consent from the patient and explaining the rationale for intubation. it was decided to go ahead and intubate the patient. The patient was lying in the supine position. Preoxygenation via BVM was provided for a minimum of 3 minutes. The patient had continuous cardiac as well as pulse oximetry monitoring during the procedure. Rapid sequence induction was provided by administration of Etomidate and Succinylcholine. A Glidescope blade 4 was used to directly visualize the vocal cords. A 8 mm endotracheal tube was visualized advancing between the cords to a level of 24 cm at the lip. The stylette was then removed. Tube placement was also noted by fogging in the tube, equal and bilateral breath sounds, no sounds over the epigastrium, and end-tidal colorimetric monitoring. The cuff was then inflated with 10 ml of air and the tube secured using a commercially available device. A good pulse oximetry wave form was seen on the monitor throughout the procedure. The patient was then connected to the ventilator at a tidal volume of 450 ml; rate of 16; FiO2 of 60%; and PEEP of 5. A portable chest x-ray has been ordered for placement. Continued sedation will be provided by Propofol continuous infusion titrated to a RASS of -2. The patient tolerated the procedure well.
[2019-12-05] MEDS: MIDAZOLAM HCL 2 MG/2 ML VIAL 4 MG (11:30)
[2019-12-05] MEDS: LORAZEPAM INJ 2 MG/ML VIAL 1 MG IV PUSH (14:07)
--- NOTE | 2019-12-05 14:13 | PCDIET ---
Patient transported from [place] to [facility] with [facility] - leaving ICU 10 at 11 am , to room 8307. Report provided to ROSALVA Dobson. This nurse traveled with patient. Pt intubated, and Impella pump in-place. Pt maintained vital signs within normal limits during transport. Pt given Versed 2mg, IVP at 1130 for agitation. Pt. tolerated transport without additional incident. Pt care transferred to ROSALVA Ross in ICU at [place]. Impella pump was transitioned without incident. [place] Impella pump returned to [employer] upon return.
[2019-12-05 17:15] LABS: SARS-CoV-2 RNA PCR Negative
--- NOTE | 2019-12-05 17:53 | P.TS_ITS ---
Transfer Discharge Sum: Prov Provider Date of admission: 12/05/19 09:10 Primary care physician: Rasta Wilson DO Admitting clinician: Edison Godoy MD Consults: 12/04/19 Consult to Physician Routine Comment: Consulting Provider: Nolvia Chavira manager call center/ group to consult: Dr. Chavira Reason for consultation: Unstable angina, hypotension Has provider been notified: Yes 12/04/19 17:29 Consult to Physician Routine Comment: RN spoke with Gina Farr Consulting Provider: Loco Calzada manager call center/ group to consult: LEONIDAS Reason for consultation: angina Has provider been notified: Yes DS: Diagnosis Admitting Diagnosis Admitting Diagnosis: Other forms of angina pectoris Discharge Diagnosis (1) Chest pain: Qualifiers: Chest pain type: chest pain due to myocardial ischemia Ischemic chest pain type: stable angina pectoris Qualified Code(s): I20.8 - Other forms of angina pectoris Code(s): R07.9 - Chest pain, unspecified Status: Acute Assessment and Plan: * Clinically has both exertional angina that is progressively worsened as well as angina decubitus * Based on this and his electrocardiogram multivessel disease is suspected and confirmed at catheterization with 100% ostial left main and subtotal RCA with collaterals from right coronary to LAD * Aspirin, carvedilol, atorvastatin, prn nitrates as blood pressure allows while here (2) Hypertension: Qualifiers: Hypertension type: unspecified Qualified Code(s): I10 - Essential (primary) hypertension Code(s): I10 - Essential (primary) hypertension Status: Chronic Assessment and Plan: * Home medications unknown at this time * Low-dose carvedilol given relatively low blood pressure and heart rate * Monitor and titrate as tolerated with possible addition of ACEI or ARB later (3) Renal failure: Qualifiers: Renal failure chronicity: unspecified chronicity Qualified Code(s): N19 - Unspecified kidney failure Code(s): N19 - Unspecified kidney failure Status: Acute Assessment and Plan: * Etiology unclear with no recent medication changes or use of [id number] nonsteroidal anti-inflammatory drugs * No symptoms to suggest obstructive uropathy * Renal ultrasound revealed no obstruction * CRP, Anca, MINERVA, complement C3 and C4, kappa and lambda light chains, urine eosinophiles * Repeat creatinine day of transfer down to 1.1 from 2.8 (4) Chronic systolic (congestive) heart failure: Code(s): I50.22 - Chronic systolic (congestive) heart failure Status: Acute Assessment and Plan: * Suggested by symptoms and exam and confirmed by imaging * Echocardiogram EF 20-25% with same findings at cardiac catheterization * Low-dose carvedilol (5) History of stroke: Code(s): Z86.73 - Personal history of transient ischemic attack (TIA), and cerebral infarction without residual deficits Status: Acute Assessment and Plan: * No residual deficit (6) Cigarette nicotine dependence: Qualifiers: Substance use status: uncomplicated Qualified Code(s): F17.210 - Nicotine dependence, cigarettes, uncomplicated Code(s): F17.210 - Nicotine dependence, cigarettes, uncomplicated Status: Chronic Assessment and Plan: * 3-5 minutes was spent in smoking cessation discussion (7) Cerebrovascular disease: Code(s): I67.9 - Cerebrovascular disease, unsp
--- NOTE | 2019-12-05 17:53 | PM.TDS ---
Transfer Discharge Sum: Prov Provider Date of admission: 12/05/19 09:10 Primary care physician: Rasta Wilson DO Admitting clinician: Edison Godoy MD Consults: 12/04/19 Consult to Physician Routine Comment: Consulting Provider: Nolvia Chavira call center rn/ group to consult: Dr. Chavira Reason for consultation: Unstable angina, hypotension Has provider been notified: Yes 12/04/19 17:29 Consult to Physician Routine Comment: RN spoke with Gina Farr Consulting Provider: Loco Calzada call center rn/ group to consult: LEONIDAS Reason for consultation: angina Has provider been notified: Yes DS: Diagnosis Admitting Diagnosis Admitting Diagnosis: Other forms of angina pectoris Discharge Diagnosis (1) Chest pain: Qualifiers: Chest pain type: chest pain due to myocardial ischemia Ischemic chest pain type: stable angina pectoris Qualified Code(s): I20.8 - Other forms of angina pectoris Code(s): R07.9 - Chest pain, unspecified Status: Acute Assessment and Plan: Clinically has both exertional angina that is progressively worsened as well as angina decubitus Based on this and his electrocardiogram multivessel disease is suspected and confirmed at catheterization with 100% ostial left main and subtotal RCA with collaterals from right coronary to LAD Aspirin, carvedilol, atorvastatin, prn nitrates as blood pressure allows while here (2) Hypertension: Qualifiers: Hypertension type: unspecified Qualified Code(s): I10 - Essential (primary) hypertension Code(s): I10 - Essential (primary) hypertension Status: Chronic Assessment and Plan: Home medications unknown at this time Low-dose carvedilol given relatively low blood pressure and heart rate Monitor and titrate as tolerated with possible addition of ACEI or ARB later (3) Renal failure: Qualifiers: Renal failure chronicity: unspecified chronicity Qualified Code(s): N19 - Unspecified kidney failure Code(s): N19 - Unspecified kidney failure Status: Acute Assessment and Plan: Etiology unclear with no recent medication changes or use of wczl-[id number] nonsteroidal anti-inflammatory drugs No symptoms to suggest obstructive uropathy Renal ultrasound revealed no obstruction CRP, Anca, MINERVA, complement C3 and C4, kappa and lambda light chains, urine eosinophiles Repeat creatinine day of transfer down to 1.1 from 2.8 (4) Chronic systolic (congestive) heart failure: Code(s): I50.22 - Chronic systolic (congestive) heart failure Status: Acute Assessment and Plan: Suggested by symptoms and exam and confirmed by imaging Echocardiogram EF 20-25% with same findings at cardiac catheterization Low-dose carvedilol (5) History of stroke: Code(s): Z86.73 - Personal history of transient ischemic attack (TIA), and cerebral infarction without residual deficits Status: Acute Assessment and Plan: No residual deficit (6) Cigarette nicotine dependence: Qualifiers: Substance use status: uncomplicated Qualified Code(s): F17.210 - Nicotine dependence, cigarettes, uncomplicated Code(s): F17.210 - Nicotine dependence, cigarettes, uncomplicated Status: Chronic Assessment and Plan: 3-5 minutes was spent in smoking cessation discussion (7) Cerebrovascular disease: Code(s): I67.9 - Cerebrovascular disease, unspecified Status: Acute Assessment and Plan: As above history of CVA with no residual continue statin and aspirin beta-grupo (8) Hyperlipidemia: Code(s): E78.5 - Hyperlipidemia, unspecified Status: Acute Assessment and Plan: LDL 150 Atorvastatin 40mg daily Transfer Discharge Sum: Med Medications Active and Home Medications: Home Medications No Home Medications 12/04/19 [History Confirmed 12/04/19] Transfer Discharge Sum: Hosp Hosp
[2019-12-07 10:02] LABS: ANA Cascade Screen Positive (Negative)
[2019-12-07 11:42] LABS: Chromatin (Nucleosomal) Ab <1.0; Chromatin Antibody Charge YES; DNA (ds) Antibody Charge YES; RNP Antibody 6.3; RNP Antibody Charge YES; Sm Antibody <1.0; Sm Antibody Charge YES; Sm/RNP Antibody <1.0; Sm/RNP Antibody Charge YES
[2019-12-07 12:09] LABS: ANCA Screen Negative (Negative)
[2019-12-09 03:58] LABS: Kappa\\Lambda Light Chains 1.73 (0.26-1.65); Lambda Light Chain 17.8 mg/L (5.7-26.3)
[2019-12-12 10:02] LABS: Activated Clotting Time 142 SEC (74-137)
[2019-12-12 10:04] LABS: Activated Clotting Time 279 SEC (74-137)
== END 2019-12-05 11:05 | disposition short-term general hospital (02) | DRG 161 ==
LOC: ANHIMU 18:19 → ANHICU 22:29 → ANHIMU 12-05 09:35
PROVIDERS: Internal Medicine; Internal Medicine Cardiovascular Disease; Nurse Practitioner Adult Health; Physician Assistant; Admitting Provider Internal Medicine; PCP Family Medicine; Visit Provider Internal Medicine
PROC: 4A023N7 Measurement of Cardiac Sampling and Pressure, Left Heart, Percutaneous Approach (ICD-10-PCS; CPT 93452; principal; 2019-12-04 10:20)
PROC: 02HA3RZ Insertion of Short-term External Heart Assist System into Heart, Percutaneous Approach (ICD-10-PCS; CPT 33979; 2019-12-04 10:20)
DX: I25.110 Atherosclerotic heart disease of native coronary artery with unstable angina pectoris (principal); I11.0 Hypertensive heart disease with heart failure; I50.23 Acute on chronic systolic (congestive) heart failure; I25.5 Ischemic cardiomyopathy; I69.351 Hemiplegia and hemiparesis following cerebral infarction affecting right dominant side; N17.9 Acute kidney failure, unspecified; E78.5 Hyperlipidemia, unspecified; F17.210 Nicotine dependence, cigarettes, uncomplicated; I34.0 Nonrheumatic mitral (valve) insufficiency
CPT/HCPCS: 31500; 33990; 36415; 71046; 74176; 80048; 80061; 81001; 83735; 83883; 84100; 84443; 84484; 85025; 85027; 85610; 85730; 85999; 86021; 86038; 86140; 86160; 86225; 86235; 86803; 87340; 87635; 93005; 93306; 93458; 94002; 96361; 96365; 96374; A9270; C1887; C1894; G0378; G0379; J0131; J0461; J1200; J1265; J1644; J2060; J2250; J2270; J2370; J2704; J3010; J7030; J7040; J7050; J7060; L1830; U0003

== ENCOUNTER 2020-05-30 12:18 | Outpatient (CLI) | payer OTHER, SELFPAY ==
--- NOTE | 2020-05-30 12:23 | ECHO_ITS ---
Patient Info Name: Dawson Rowland Age: 59 years : 1960 Gender: Male Ht: 66 in Wt: 145 lbs BSA: 1.76 m2 HR: 55 bpm BP: 112 / 70 mmHg Heart Rhythm: Sinus Rhythm Technical Quality: Good Exam Date: 05/30/2020 12:49 PM Exam Location: [facility] Patient Status: Outpatient Admit Date: 05/30/2020 Staff Ordering Physician: Rasta Wilson DO Meter Inspector: Malu Wang RDCS Attending Provider: Rasta Wilson DO Referring Physician: Katie ROSARIO; Exam Type: CA echo doppler color flow Study Info Indications I50.22 - Chronic systolic (congestive) heart failure Complete two-dimensional, color flow and Doppler transthoracic echocardiogram is performed. Strain analysis performed. History/Risk Factors Hypertension: Yes Dyslipidemia: Yes Peripheral Arterial Disease (PAD): No Myocardial Infarction (ND): Yes Obesity: No Renal Disease: No Coronary Artery Disease (CAD) Yes Congestive Heart Failure (CHF): Hx CHF Diabetes Mellitus: No Tobacco Use: Former Cerebrovascular Disease: CVA DVT Treatment: Apixaban Deep Vein Thrombosis (DVT): None Dialysis: None Frailty Scale (CSHA): 3: Managing Well Summary 1. Complete two-dimensional, color flow and Doppler transthoracic echocardiogram is performed. 2. Left ventricular chamber dimension is severely enlarged. 3. Left ventricular systolic function is severely reduced, estimated at 25-30%. 4. The left ventricular diastolic function is grade I diastolic dysfunction. 5. E/e' 11 is mildly elevated. 6. Global longitudinal strain is abnormal at -7.4%. 7. Left atrial chamber dimension is mildly enlarged. 8. There is mild aortic valve sclerosis. 9. There is mild mitral valve regurgitation. 10. There is trace tricuspid valve regurgitation. 11. No pulmonary hypertension, estimated pulmonary arterial systolic pressure is 26 mmHg. Left Ventricle E/e' 11 is mildly elevated. Global longitudinal strain is abnormal at -7.4%. Left ventricular chamber dimension is severely enlarged. Left ventricular systolic function is severely reduced, estimated at 25-30%. The left ventricular diastolic function is grade I diastolic dysfunction. Right Ventricle Right ventricular chamber dimension is normal. Right ventricular systolic function is normal. Left Atria Left atrial chamber dimension is mildly enlarged. Right Atria Right atrial chamber dimension is normal. Aortic Valve The aortic valve is trileaflet. There is mild aortic valve sclerosis. There is no aortic valve stenosis. There is no aortic valve regurgitation. Pulmonic Valve There is no pulmonic regurgitation. Mitral Valve There is no mitral valve stenosis. There is mild mitral valve regurgitation. Tricuspid Valve There is trace tricuspid valve regurgitation. No pulmonary hypertension, estimated pulmonary arterial systolic pressure is 26 mmHg. Pericardium/Pleural There is no pericardial effusion. Inferior Vena Cava Normal inferior vena cava with >50% collapse upon inspiration consistent with normal right atrial pressure, 5 mmHg. Aorta The aortic root size at the sinus of Valsalva is normal. Left Ventricular Outflow Tract Name Value Normal LVOT 2D
== END 2020-05-30 12:19 | disposition home or self-care (01) ==
LOC: CHSIMG 12:19
PROVIDERS: PCP Family Medicine; Visit Provider Family Medicine
DX: I50.22 Chronic systolic (congestive) heart failure (principal)
CPT/HCPCS: 93306

== ENCOUNTER 2021-12-17 02:25 | Emergency (ER) | payer OTHER, SELFPAY ==
[2021-12-17] VITALS (30 sets, daily range): BP systolic 107–181; BP diastolic 67–123; PULSE 49–80; RESP 9–27; TEMP 36.7; O2SAT 93–100
--- NOTE | ~2021-12-17 | CT_ITS ---
EXAMINATION: CTA chest DATE: 12/17/2021 03:31 INDICATION: Chest pain radiating to the back. TECHNIQUE: Computed tomographic angiography (CTA) of the chest was performed without and with 100 mL Omnipaque-350 intravenous contrast. Volume-rendered 3D-reconstructions of the aorta and large arterie s were constructed by the technologist on a separate workstation. Automated exposure control and iter ative reconstruction technique were employed. The dose-length product was 332.20 mGy-cm. COMPARISON: None. FINDINGS: Mild emphysema. No pneumonia, pulmonary edema or pleural effusion. No pulmonary embolism. Cardiomegal y. No pericardial effusion. Atherosclerotic coronary artery calcification. Thoracic aorta is normal i n caliber with no dissection. There are scattered atherosclerotic calcification along the aorta and m any of its major branch vessels. There is mild, <50%, stenosis at the origin of celiac axis and super ior mesenteric artery. Moderate, 50-70% stenosis at the origins of the bilateral renal arteries. No p athologically enlarged thoracic lymphadenopathy. Couple calcified mediastinal lymph nodes consistent with old granulomatous disease. Visualized portions of the upper abdomen are unremarkable. Mild thora cic spondylosis. IMPRESSION: 1. No thoracic aneurysm, dissection or other acute cardiopulmonary disease. 2. Cardiomegaly. 2. Scattered atherosclerotic disease with moderate stenosis at the origin of the bilateral renal harrison danny and mild stenosis at the celiac axis and proximal superior mesenteric artery. Reviewed, dictated and finalized at location A. IMPRESSION: 1. No thoracic aneurysm, dissection or other acute cardiopulmonary disease. 2. Cardiomegaly. 2. Scattered atherosclerotic disease with moderate stenosis at the origin of th e bilateral renal arteries and mild stenosis at the celiac axis and proximal acharya perior mesenteric artery.
--- NOTE | ~2021-12-17 | XR_ITS ---
EXAMINATION: XR chest 2V DATE: 12/17/2021 03:00 INDICATION: Chest pain and pressure TECHNIQUE: frontal view of the chest was obtained. COMPARISON: Chest radiograph dated 12/05/2019 FINDINGS: The lungs are clear with no focal airspace opacities, pulmonary edema, pleural effusion or pneumothor ax. The cardiomediastinal silhouette is normal. Patient is rotated slightly towards the left. IMPRESSION: 1. No acute cardiopulmonary disease. Reviewed, dictated and finalized at location A.
--- NOTE | 2021-12-17 02:29 | ED.CHESTPAIN ---
HPI - Chest Pain General Chief Complaint: Chest Pain Stated Complaint: CHEST PAIN Time Seen by Provider: 12/17/21 02:29 Source: patient and RN notes reviewed Mode of arrival: wheelchair Limitations: no limitations History of Present Illness HPI narrative: patient states that he began having some chest pain approximately 5 hours prior to his arrival. He got worse 20 minutes prior to arrival. Severe anterior chest wall pain with radiation to his back. Said that he had some diaphoresis and some nausea no vomiting. He has got a cardiac history of some stent placement. MD complaint: chest pain Pertinent past history: coronary artery disease, prior VT and [employer] Onset (ago): hour(s) (5 ) Timing of current episode: episodic Prior episodes: Yes Onset: during rest Pain location: substernal Pain radiation: back Severity: moderate Quality: tightness and sharp Relieving factors: nothing Exacerbating factors: nothing Associated symptoms: nausea, diaphoresis and dyspnea Treatment prior to arrival: nitroglycerin Related Data Allergies Allergy/AdvReac Type Severity Reaction Status Date / Time No Known Allergies Allergy Verified 12/17/21 02:52 Review of Systems Review of Systems: All systems reviewed & are unremarkable except as noted in HPI and below PMFSH Past Medical History Medical History (Updated 12/17/21 @ 05:58 by Malik Platt MD) Bilateral carotid bruits Cerebrovascular disease Chronic systolic (congestive) heart failure Cigarette nicotine dependence History of stroke Hyperlipidemia Hypertension Mitral insufficiency Surgical History Surgical History History of carpal tunnel repair Right Side, with subsequent reconstruction History of intravascular stent placement Family History Family History Mother Heart disease Alzheimers disease Father Leukemia Social History Social History Social History: 25pk year history. Quit smoking in December 2020. Smoking status: Former smoker Second hand tobacco smoke exposure: No Alcohol intake: current Drinks per week: 3 Substance use: never Additional living arrangements comments: . 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 Gender identity (if verbalized by the patient): Male Spiritual care concerns: Yes Agree to blood products: Yes Exam Const: General: no acute distress, alert and ill appearing acutely Nutritional Appearance: well nourished Orientation/consciousness: patient oriented x3 HENMT: Head: normal to inspection Ears: external ears normal Face and sinus: normal facial exam Mouth: Yes moist mucous membranes Eyes: Conjunctivae: conjunctivae normal Pupils: Equal, round and reactive pupils present EOM: EOMs intact bilaterally Neck: Neck: normal visual inspection Chest: Chest palpation & inspection: tenderness sternum Resp: Effort & Inspection: normal respiratory effort Auscultation: clear to auscultation bilaterally Cardio: Rate: regular rate Rhythm: regular rhythm GI: GI Palp: Yes Soft to palpation and No Tenderness to palpation present (GI) Auscultation: normal bowel sounds Back/Spine/Pelvis: Cervical Spine: cervical ROM normal Thoracic/Lumbar Spine: thoraco-lumbar ROM normal Skin: General skin exam: normal color Rashes: no rashes Neuro: General: patient oriented x3, moves all extremities, no focal motor deficits and CN's II-XI intact bilaterally Speech: normal speech Extrem: General: normal to inspection and no clubbing, cyanosis or edema Psych: Appearance: grossly normal and well kempt Mental Status: mental status grossly normal Affect: normal affect Attitude: cooperative Thought content: Yes Normal thought content present Course Vital Signs Vital signs: Vital Signs Temperature
--- NOTE | 2021-12-17 02:30 | ECG_ITS ---
Measurements Intervals [place] Rate: 68 P: -53 CT: 142 QRS: -36 QRSD: 129 T: 213 QT: 423 QTc: 451 Interpretive Statements SINUS OR ECTOPIC ATRIAL RHYTHM LEFT AXIS DEVIATION LEFT VENTRICULAR HYPERTROPHY AND ST-T CHANGE CANNOT RULE OUT SEPTAL INFARCT, AGE INDETERMINATE ST-T WAVE ABNORMALITY IN LATERAL LEADS- CONSIDER ISCHEMIA BASELINE ARTIFACT- I, II, V1 ABNORMAL ECG Electronically Signed On 12-17-2021 9:05:12 CDT by Jan Newberry D.O.
[2021-12-17 02:41] LABS: Basophils Absolute Auto 0.06 K/mm3 (0.00-0.10); Basophils Percent Auto 0.7 % (0.0-1.0); Eosinophils Absolute Auto 0.18 K/mm3 (0.02-0.50); Eosinophils Percent Auto 2.1 % (1.0-6.0); Hematocrit 41.4 % (40.0-54.0); Immature Granulocyte Absolute 0.02 K/mm3 (0.00-0.00); Immature Granulocyte Percent A 0.2 % (0.0-0.0); Lymphocytes Absolute Auto 3.24 K/mm3 (1.10-4.50); Lymphocytes Percent Auto 37.5 % (18.0-42.0); Mean Corpuscular HGB Conc 33.8 g/dL (32.0-36.0); Mean Corpuscular Volume 88.7 fL (78.0-102.0); Mean Platelet Volume 8.6 fl (8.7-11.0); Monocytes Absolute Auto 1.04 K/mm3 (0.10-0.90); Neutrophils Absolute Auto 4.1 K/mm3 (1.7-7.2); Neutrophils Percent Auto 47.5 % (50.0-70.0); Platelet Count Result 331 K/mm3 (150-420); Red Blood Count 4.67 M/mm3 (4.70-6.10); Red Cell Distribution Width 13.5 % (11.6-14.4); White Blood Count 8.6 K/mm3 (4.8-10.8)
[2021-12-17] MEDS: ONDANSETRON INJ 4 MG/2 ML VIAL IV PUSH (02:41)
[2021-12-17] MEDS: ASPIRIN 81 MG CHEWABLE TABLET 324 MG PO (02:41)
[2021-12-17] MEDS: MORPHINE SULFATE (*CRX) 4 MG/ML INJ 6 MG IV PUSH (02:41)
[2021-12-17 02:54] LABS: Prothrombin Time 10.2 Seconds (9.50-12.10)
[2021-12-17 02:56] LABS: D Dimer 0.44 mg/L (0.19-0.50)
[2021-12-17 03:01] LABS: Alanine Aminotransferase 21 U/L (16-63); Albumin Level 3.6 g/dL (3.4-5.0); Alkaline Phosphatase 76 U/L (46-116); Anion Gap 10 mmol/L (8-16); Aspartate Amino Transferase 23 U/L (15-37); Bilirubin,Total 0.2 mg/dL (0.00-1.00); Blood Urea Nitrogen 18 mg/dL (7-18); Calcium 8.7 mg/dL (8.5-10.1); Carbon Dioxide 24 mmol/L (21-32); Chloride 102 mmol/L (98-108); Estimated CRCL calculation 62 ml/min; Estimated Glomerular Filt Rate > 60; Glucose 103 mg/dL (70-99); NT Pro B Type Natriuretic Pept 558 pg/mL (0-125); Osmolality Calculated 283 mOsm/kg (285-295); Potassium 3.7 mmol/L (3.5-5.1); Sodium 136 mmol/L (136-145); Total Protein 7.2 g/dL (6.4-8.2)
[2021-12-17 03:02] LABS: Troponin I 36.6 ng/L (0.00-60.4)
--- NOTE | 2021-12-17 03:28 | PC.NURSE ---
PT HAS RETURNED FROM CT, AT BEDSIDE. VSS PER MONITOR. PT REPORTS PAIN HAS GREATLY IMPROVED. PT IS RESTING ON STRETCHER WITHOUT DISTRESS NOTED. PT DENIES ANY NEEDS OR COMPLAINTS. WILL CONTINUE TO MONITOR. PT IS AWAITING REPEAT TROPONIN TO BE DRAWN AND CT RESULTS.
--- NOTE | 2021-12-17 04:18 | PC.NURSE ---
pt is resting on stretcher with at bedside. vss per monitor. nad noted. will continue to monitor.
[2021-12-17 05:08] LABS: Troponin I 37.7 ng/L (0.00-60.4)
--- NOTE | 2021-12-17 05:49 | PC.NURSE ---
no change in pt status, awaiting erp decision. vss. will continue to monitor.
== END 2021-12-17 06:00 | disposition home or self-care (01) ==
PROVIDERS: Emergency Provider Emergency Medicine; PCP Family Medicine
DX: I70.1 Atherosclerosis of renal artery (principal); R07.9 Chest pain, unspecified; Z87.891 Personal history of nicotine dependence
CPT/HCPCS: 36415; 71046; 71275; 80053; 83880; 84484; 85025; 85380; 85610; 93005; 96374; 96375; 99284; A9270; J2270; J2405; Q9967